=== PATIENT | female | born 1995 | race Caucasian/White ===

== ENCOUNTER 2023-06-24 14:36 | Emergency (ER) | payer MEDICAID, OTHER ==
[~2023-06-24] VITALS: Ht 167.6 cm; Wt 54.5 kg
[2023-06-24 15:51] VITALS: BP 112/59; PULSE 96; RESP 16; TEMP 97.6; O2SAT 99
[2023-06-24] MEDS ORDERED: SUMAtriptan SUCCINATE 6 MG/0.5 ML VL SC ONE (16:00)
[2023-06-24] MEDS ORDERED: AZIT500T66 PO (16:51)
[2023-06-24] MEDS ORDERED: SUMA50TA2 PO (16:51)
== END 2023-06-24 16:58 | disposition home or self-care (01) ==
LOC: ER 14:36 → EDBD 14:36 → ER 16:57
DX: G43.009 Migraine without aura, not intractable, without status migrainosus (principal); H66.93 Otitis media, unspecified, bilateral
CPT/HCPCS: 70450; 96372; 99285; J3030